=== PATIENT | female | born 1940 | race Caucasian/White ===

== ENCOUNTER 2023-10-19 16:54 | Emergency (ER) | payer MEDICARE, BC, SELFPAY ==
[2023-10-19 16:55] VITALS: BP 153/81
--- NOTE | 2023-10-19 17:24 | ED.GENMED ---
History of Present Illness
General
Chief Complaint: Fall
Source: patient
Exam Limitations: none
Time Seen by Provider: 10/19/23 17:08
Travel History
Have you had any contact with someone who has COVID-19?: No
Do you have any symptoms of coronavirus? Fever > 100 degrees, chills, cough, shortness of breath, sore throat, loss of taste or smell, muscle aches, or headache?: No
History of Present Illness
History of Present Illness:
See MDM
Past History
Past History
ED Past Medical History: None
ED Past Surgical History: Orthopedic
Social History
Tobacco: Non-smoker
Alcohol: None
Phy Exam
Physical Exam
Physical Exam:
See MDM
Course
Orders/Labs/Results
Orders:
Orders
10/19/23 17:02
Knee, Right 4 or More Views [CR Knee- Right 4 Or More View*] Urgent
Comment:
Reason For Exam: pain, swelling, fall
10/19/23 17:23
Oxycodone/Acetaminophen [Percocet 5/325] 1 tablet PO NOW STA
10/19/23 18:45
Ketorolac [Toradol] 30 mg IM NOW STA
Vital Signs
Initial and Last Documented VS:
Initial Vital Signs
Temp Pulse Resp BP Pulse Ox
98.6 F 89 18 153/81 96
10/19/23 16:55 10/19/23 16:55 10/19/23 16:55 10/19/23 16:55 10/19/23 16:55
Last Documented Vital Signs
Temp Pulse Resp BP Pulse Ox
98.6 F 89 18 153/81 96
10/19/23 16:55 10/19/23 16:55 10/19/23 16:55 10/19/23 16:55 10/19/23 16:55
MDM/Problems Addressed
Differential Diagnosis Includes:
HPI and MDM Narrative:
83-year-old female presenting for evaluation of right knee pain. Patient was doing yard work and she tripped and she fell forward. She is having trouble bearing weight on her right leg due to the knee pain. She also scraped her left forearm. She
denies head injury.
X-ray appears to show no fracture or loosening. Will give Percocet and reevaluate if she can walk
Offer x-rays for the other areas of injury but patient states she is unconcerned about forearm or hand fracture
Physical exam
General: Well appearing and non-toxic
HEENT: protecting airway
Neck: appears supple
CV: No evidence of cyanosis
Resp: No accessory muscle use
Abd: Non-distended
Extremities: Tenderness to right anterior knee. No effusion noted. Abrasion and bruising to left forearm and right hand
Neuro: alert
Psych: Normal affect
Skin: Intact
Problems Addressed including Acute and Chronic Conditions affecting care:
1. Right knee injury
Acuity: acute
Prognosis: stable
Details: X-ray shows no evidence of fracture. Will give Percocet and reevaluate if patient can walk
Updates
X-ray negative for fracture. We discussed possibly admitting for pain control. Patient is having trouble ambulating but she wants to go home. She has crutches, a cane and a walker at home
Differential Diagnosis (but not limited to): Knee fracture, knee contusion, forearm fracture
Testing considered: X-ray left forearm and right hand
Drug therapy (if applicable): OTC meds, please see d/c instruction regarding Rx drugs
Amount and/or Complexity of Data Reviewed
Clinical info obtained from: Patient
External data reviewed: N/A
Labs I independently reviewed (but not limited to): N/A
Radiology: X-ray independently reviewed: Right knee x-ray negative for fracture
Pulse Ox: not hypoxic
EKG independently reviewed: N/A
Professional Fighter: N/A
Critical Care: N/A
Risk of Complication:
Social Determinants of health: Good social support
Discussed with other providers: N/A
Escalation of Care includes Admit/Obs: After being observed in the Emergency Department, pt stable for discharge.
Occasional wrong word or 'sound a like' substitutions may have occurred due to the inherent limitations of voice recognition software. Read the chart carefully and recognize, using context, where substitutions have occurred.
*Critical Care Note
Total Time (30-74mins, 75-104mins- exclusive of procedures): Not Applicable
ED Attending Note
-
Portions of this chart may have been created with voice recognition software.� Occasional wrong word or��sound alike� substitutions may have occurred due to the inherent limitations of voice recognition software.
Discharge Plan
Departure
Patient Disposition: Home (Routine Discharge)
Date of Disposition: 10/19/23
Time of Disposition: 18:47
Patient with high blood pressure during this ER visit?: Yes
Discharge Problem:
Right knee injury
Prescriptions:
New
diclofenac potassium 50 mg tablet
50 mg PO BID Qty: 20 0RF
oxycodone 5 mg tablet
5 mg PO Q8H PRN (Reason: Pain) Qty: 10 0RF
Referrals:
PRIVATE,PHYSICIAN [Family Provider] -
Activity Restrictions/Additional Instructions:
Please return for any worsening symptoms.
You may return at any time if you have further concerns.
Please follow up with your doctor at the first available appointment, preferably this week.
You were given a prescription for narcotics. If you require this pain medicine, please take a daily [id number] stool softener to avoid constipation.
Thank you for choosing [facility].
Interventions
Interventions:
*Risk Screen - Suicide Last Done: 10/19/23 16:55
*General Assessment Last Done: 10/19/23 16:55
Discharge Date and Time
Print Language: SUDANESE
[2023-10-19] MEDS: PERCOCET 5/325 1 TABLET PO (17:29)
[2023-10-19] MEDS: TORADOL 30 MG IM (18:56)
[2023-10-19 19:33] VITALS: BP 148/70
== END 2023-10-19 19:39 | disposition home or self-care (01) ==
LOC: EMR 16:54
PROVIDERS: EMERGENCY PHYSICIAN Student in an Organized Health Care Education/Training Program
DX: S89.91XA Unspecified injury of right lower leg, initial encounter (principal); W19.XXXA Unspecified fall, initial encounter
CPT/HCPCS: 99283; 96372; 73564

== ENCOUNTER 2023-12-28 09:51 | Outpatient (RCR) | payer MEDICARE, BC, SELFPAY | END 2023-12-28 23:59 | disposition home or self-care (01) | LOC: RPT 09:51 | PROVIDERS: ATTENDING PHYSICIAN Orthopaedic Surgery; FAMILY PHYSICIAN Nurse Practitioner Adult Health | DX: S83.411D Sprain of medial collateral ligament of right knee, subsequent encounter (principal); X58.XXXD Exposure to other specified factors, subsequent encounter; M76.891 Other specified enthesopathies of right lower limb, excluding foot; M70.50 Other bursitis of knee, unspecified knee; Z73.6 Limitation of activities due to disability | CPT/HCPCS: 97010; 97110; 97140; 97162 ==

== ENCOUNTER 2024-01-18 08:48 | Outpatient (RCR) | payer MEDICARE, BC, SELFPAY | END 2024-01-18 23:59 | disposition home or self-care (01) | LOC: RPT 08:48 | PROVIDERS: ATTENDING PHYSICIAN Orthopaedic Surgery; FAMILY PHYSICIAN Nurse Practitioner Adult Health | DX: S83.411D Sprain of medial collateral ligament of right knee, subsequent encounter (principal); M70.50 Other bursitis of knee, unspecified knee; M76.891 Other specified enthesopathies of right lower limb, excluding foot; Z96.651 Presence of right artificial knee joint; R26.89 Other abnormalities of gait and mobility; Z73.6 Limitation of activities due to disability | CPT/HCPCS: 97010; 97110; 97140 ==